=== PATIENT | female | born 1955 | race Caucasian/White ===

== ENCOUNTER → 2016-09-04 | Outpatient (CLI) | payer MEDICARE, MEDICAID ==
[2016-09-04 11:54] LABS: Basophils # (auto) 0.1 uL; Basophils % (auto) 0.9 % (0.0-2.0); DEFINITIVE VIEW TRANSMISSION; Eosinophils # (auto) 0.1 uL; Eosinophils % (auto) 1.5 % (0.0-7.0); Hemoglobin 11.2 g/dL (12.2-16.2); Lymphocytes # (auto) 2.8 uL; Lymphocytes % (auto) 46.2 % (10.0-50.0); Mean Corpuscular Hemoglobin 25.8 pg (28.0-32.0); Mean Corpuscular Hgb Conc. 31.9 g/dL (32.0-36.0); Mean Corpuscular Volume 80.8 fL (80.0-100.0); Mean Platelet Volume 8.5 fL (7.4-10.4); Monocytes # (auto) 0.4 uL; Neutrophils # (auto) 2.7 uL; Neutrophils % (auto) 44.4 % (37.0-80.0); Platelet Count (auto) 413 10^3/uL (140-450); Red Cell Distribution Width 17.6 % (11.6-16.0); White Blood Cell 6.1 10^3/uL (4.4-10.8)
[2016-09-04 12:16] LABS: Albumin 3.8 g/dL (3.4-5.0); BUN/Creatinine Ratio 16.8; Bilirubin, Total 0.5 mg/dL (0.2-1.0); Calcium 8.7 mg/dL (8.5-10.1); Potassium 4.3 mmol/L (3.5-5.1); Total Protein 8.3 g/dL (6.4-8.2)
== END | disposition home or self-care (01) ==
LOC: LAB 10:36
DX: D64.9 Anemia, unspecified (principal); M06.9 Rheumatoid arthritis, unspecified; I10 Essential (primary) hypertension; M25.50 Pain in unspecified joint; Z79.899 Other long term (current) drug therapy
CPT/HCPCS: 36415; 80053; 85025; 85652; 86141

== ENCOUNTER → 2016-10-30 | Outpatient (CLI) | payer MEDICARE, MEDICAID ==
[2016-10-30 11:52] LABS: Basophils # (auto) 0 uL; Basophils % (auto) 0.7 % (0.0-2.0); DEFINITIVE VIEW TRANSMISSION; Eosinophils # (auto) 0.1 uL; Eosinophils % (auto) 2.3 % (0.0-7.0); Hematocrit 35.8 % (36.0-46.0); Hemoglobin 11.3 g/dL (12.2-16.2); Lymphocytes # (auto) 2.2 uL; Lymphocytes % (auto) 42.1 % (10.0-50.0); Mean Corpuscular Hemoglobin 25.8 pg (28.0-32.0); Mean Corpuscular Hgb Conc. 31.6 g/dL (32.0-36.0); Mean Corpuscular Volume 81.7 fL (80.0-100.0); Mean Platelet Volume 8.8 fL (7.4-10.4); Monocytes # (auto) 0.3 uL; Monocytes % (auto) 5.2 % (0.0-12.0); Neutrophils # (auto) 2.6 uL; Neutrophils % (auto) 49.7 % (37.0-80.0); Platelet Count (auto) 425 10^3/uL (140-450); White Blood Cell 5.3 10^3/uL (4.4-10.8)
[2016-10-30 12:23] LABS: Albumin 3.7 g/dL (3.4-5.0); BUN/Creatinine Ratio 18.5; Bilirubin, Total 0.4 mg/dL (0.2-1.0); Calcium 9.2 mg/dL (8.5-10.1); Total Protein 8.1 g/dL (6.4-8.2)
== END | disposition home or self-care (01) ==
LOC: LAB 10:52
DX: M06.9 Rheumatoid arthritis, unspecified (principal); M25.50 Pain in unspecified joint; I10 Essential (primary) hypertension; Z79.899 Other long term (current) drug therapy
CPT/HCPCS: 36415; 80053; 85025; 85652; 86141

== ENCOUNTER → 2016-12-31 | Outpatient (CLI) | payer MEDICARE, MEDICAID ==
[2016-12-31 11:34] LABS: Basophils # (auto) 0 uL; Basophils % (auto) 0.7 % (0.0-2.0); CONDITION Y; DEFINITIVE SEE PRINTOUT; Eosinophils # (auto) 0.1 uL; Eosinophils % (auto) 1.9 % (0.0-7.0); Hematocrit 34.1 % (36.0-46.0); Hemoglobin 10.9 g/dL (12.2-16.2); Lymphocytes # (auto) 2.5 uL; Lymphocytes % (auto) 50.1 % (10.0-50.0); Mean Corpuscular Hemoglobin 25.9 pg (28.0-32.0); Mean Corpuscular Hgb Conc. 31.9 g/dL (32.0-36.0); Mean Corpuscular Volume 81.2 fL (80.0-100.0); Mean Platelet Volume 8.9 fL (7.4-10.4); Monocytes # (auto) 0.3 uL; Monocytes % (auto) 6.8 % (0.0-12.0); Neutrophils % (auto) 40.5 % (37.0-80.0); Platelet Count (auto) 384 10^3/uL (140-450); Red Cell Distribution Width 16.3 % (11.6-16.0)
[2016-12-31 12:12] LABS: Albumin 3.6 g/dL (3.4-5.0); BUN/Creatinine Ratio 19.8; Bilirubin, Total 0.4 mg/dL (0.2-1.0); Calcium 8.3 mg/dL (8.5-10.1); Potassium 4.3 mmol/L (3.5-5.1); Total Protein 7.7 g/dL (6.4-8.2)
== END | disposition home or self-care (01) ==
LOC: LAB 10:51
DX: I10 Essential (primary) hypertension (principal); M06.9 Rheumatoid arthritis, unspecified; D64.9 Anemia, unspecified; M25.50 Pain in unspecified joint; Z79.899 Other long term (current) drug therapy
CPT/HCPCS: 36415; 80053; 85025; 85652; 86141

== ENCOUNTER → 2017-01-22 | Outpatient (CLI) | payer MEDICARE, MEDICAID ==
[2017-01-22 13:55] LABS: Basophils # (auto) 0.1 uL; Basophils % (auto) 0.9 % (0.0-2.0); CONDITION Y; DEFINITIVE SEE PRINTOUT; Eosinophils # (auto) 0.1 uL; Eosinophils % (auto) 1.3 % (0.0-7.0); Hematocrit 33.2 % (36.0-46.0); Hemoglobin 10.5 g/dL (12.2-16.2); Lymphocytes # (auto) 2.9 uL; Lymphocytes % (auto) 53.9 % (10.0-50.0); Mean Corpuscular Hemoglobin 25.8 pg (28.0-32.0); Mean Corpuscular Hgb Conc. 31.7 g/dL (32.0-36.0); Mean Corpuscular Volume 81.5 fL (80.0-100.0); Mean Platelet Volume 8.9 fL (7.4-10.4); Monocytes # (auto) 0.4 uL; Monocytes % (auto) 7.8 % (0.0-12.0); Neutrophils % (auto) 36.1 % (37.0-80.0); Platelet Count (auto) 406 10^3/uL (140-450); Red Cell Distribution Width 16.3 % (11.6-16.0); White Blood Cell 5.5 10^3/uL (4.4-10.8)
[2017-01-22 14:04] LABS: Urine Bilirubin Negative (Negative); Urine Blood Negative /uL (Negative); Urine Color Yellow (Yellow); Urine Glucose Normal (Normal); Urine Ketone Negative (Negative); Urine Nitrite Negative (Negative); Urine RBC <1 /hpf (0 - 4); Urine Squamous Epithelial Cell FEW /hpf (<5); Urine Urobilinogen Normal (Negative); Urine pH 5.5 (5.0-8.0)
[2017-01-22 14:10] LABS: INR 0.94 (0.9-1.15); Prothrombin Time 10.2 sec (9.37-12.3)
[2017-01-22 14:29] LABS: Albumin 3.7 g/dL (3.4-5.0); BUN/Creatinine Ratio 18.4; Bilirubin, Total 0.4 mg/dL (0.2-1.0); Calcium 8.8 mg/dL (8.5-10.1); Potassium 4.1 mmol/L (3.5-5.1); Total Protein 7.8 g/dL (6.4-8.2)
== END | disposition home or self-care (01) ==
LOC: LAB 13:19
PROVIDERS: ATTEND Internal Medicine Cardiovascular Disease
DX: R07.9 Chest pain, unspecified (principal); Z01.810 Encounter for preprocedural cardiovascular examination; I49.8 Other specified cardiac arrhythmias
CPT/HCPCS: 36415; 80053; 81001; 85025; 85610; 85730; 87086

== ENCOUNTER → 2017-03-18 | Outpatient (CLI) | payer MEDICARE, MEDICAID ==
[2017-03-18 13:48] LABS: Basophils # (auto) 0 uL; Basophils % (auto) 0.9 % (0.0-2.0); CONDITION Y; DEFINITIVE SEE PRINTOUT; Eosinophils # (auto) 0.1 uL; Hemoglobin 10.9 g/dL (12.2-16.2); Lymphocytes # (auto) 2.6 uL; Mean Corpuscular Hemoglobin 25.8 pg (28.0-32.0); Mean Corpuscular Hgb Conc. 31.9 g/dL (32.0-36.0); Mean Platelet Volume 8.9 fL (7.4-10.4); Monocytes # (auto) 0.4 uL; Monocytes % (auto) 7.1 % (0.0-12.0); Platelet Count (auto) 399 10^3/uL (140-450); Red Cell Distribution Width 16.5 % (11.6-16.0); White Blood Cell 5.1 10^3/uL (4.4-10.8)
[2017-03-18 14:15] LABS: Albumin 3.7 g/dL (3.4-5.0); BUN/Creatinine Ratio 13.5; Bilirubin, Total 0.5 mg/dL (0.2-1.0); Calcium 8.8 mg/dL (8.5-10.1); Potassium 4.2 mmol/L (3.5-5.1); Total Protein 7.9 g/dL (6.4-8.2)
== END | disposition home or self-care (01) ==
LOC: LAB 13:19
DX: I10 Essential (primary) hypertension (principal); M06.9 Rheumatoid arthritis, unspecified; M25.50 Pain in unspecified joint; D64.9 Anemia, unspecified; Z79.899 Other long term (current) drug therapy
CPT/HCPCS: 36415; 80053; 85025; 85652; 86141

== ENCOUNTER → 2017-04-08 | Outpatient (CLI) | payer MEDICARE, MEDICAID ==
[2017-04-08 11:15] LABS: Basophils # (auto) 0.1 uL; Eosinophils # (auto) 0.1 uL; Eosinophils % (auto) 1.6 % (0.0-7.0); Hematocrit 34.6 % (36.0-46.0); Lymphocytes # (auto) 2.5 uL; Lymphocytes % (auto) 49.8 % (10.0-50.0); Mean Corpuscular Hemoglobin 25.5 pg (28.0-32.0); Mean Corpuscular Hgb Conc. 31.6 g/dL (32.0-36.0); Mean Corpuscular Volume 80.7 fL (80.0-100.0); Mean Platelet Volume 8.7 fL (6.9-10.8); Monocytes # (auto) 0.3 uL; Monocytes % (auto) 5.9 % (0.0-12.0); Neutrophils # (auto) 2.1 uL; Neutrophils % (auto) 41.7 % (37.0-80.0); Nucleated Red Blood Cells % 0.1 %; Platelet Count (auto) 344 10^3/uL (140-450); Red Cell Distribution Width 16.3 % (11.8-14.3); White Blood Cell 5.1 10^3/uL (4.4-10.8)
[2017-04-08 11:21] LABS: Albumin 3.6 g/dL (3.4-5.0); BUN/Creatinine Ratio 15.8; Bilirubin, Total 0.5 mg/dL (0.2-1.0); Calcium 8.1 mg/dL (8.5-10.1)
[2017-04-09 12:08] LABS: Thyroid Peroxidase (TPO) Ab >600 IU/mL (0-34)
== END | disposition home or self-care (01) ==
LOC: LAB 09:57
DX: E09.9 Drug or chemical induced diabetes mellitus without complications (principal)
CPT/HCPCS: 36415; 80053; 83036; 84436; 84439; 84443; 84480; 85025; 86376; 86800

== ENCOUNTER → 2017-05-08 | Outpatient (CLI) | payer MEDICARE, MEDICAID | END | disposition home or self-care (01) | LOC: LAB 10:15 | DX: E03.9 Hypothyroidism, unspecified (principal) | CPT/HCPCS: 36415; 84439; 84443; 84480 ==

== ENCOUNTER → 2017-06-03 | Outpatient (CLI) | payer MEDICARE, MEDICAID ==
[2017-06-03 13:26] LABS: Basophils # (auto) 0 uL; Basophils % (auto) 0.8 % (0.0-2.0); Eosinophils # (auto) 0.1 uL; Hemoglobin 10.4 g/dL (12.2-16.2); Monocytes # (auto) 0.4 uL; Neutrophils # (auto) 2.3 uL; White Blood Cell 5.5 10^3/uL (4.4-10.8)
[2017-06-03 13:28] LABS: Eosinophils % (auto) 1.9 % (0.0-7.0); Hematocrit 32.9 % (36.0-46.0); Lymphocytes # (auto) 2.7 uL; Lymphocytes % (auto) 48.6 % (10.0-50.0); Mean Corpuscular Hemoglobin 25.6 pg (28.0-32.0); Mean Corpuscular Hgb Conc. 31.7 g/dL (32.0-36.0); Mean Corpuscular Volume 80.7 fL (80.0-100.0); Mean Platelet Volume 8.1 fL (6.9-10.8); Monocytes % (auto) 7.3 % (0.0-12.0); Neutrophils % (auto) 41.4 % (37.0-80.0); Nucleated Red Blood Cells % 0.2 %; Platelet Count (auto) 351 10^3/uL (140-450); Red Cell Distribution Width 16.2 % (11.8-14.3)
[2017-06-03 15:40] LABS: Albumin 3.7 g/dL (3.4-5.0); BUN/Creatinine Ratio 18.3; Bilirubin, Total 0.5 mg/dL (0.2-1.0); Calcium 8.6 mg/dL (8.5-10.1); Potassium 4.2 mmol/L (3.5-5.1)
== END | disposition home or self-care (01) ==
LOC: LAB 12:54
DX: I10 Essential (primary) hypertension (principal); M06.9 Rheumatoid arthritis, unspecified; I70.0 Atherosclerosis of aorta; E78.00 Pure hypercholesterolemia, unspecified; D64.9 Anemia, unspecified; Z79.899 Other long term (current) drug therapy
CPT/HCPCS: 36415; 80053; 85025; 85652; 86141

== ENCOUNTER → 2017-06-09 | Outpatient (CLI) | payer MEDICARE, MEDICAID ==
[2017-06-09 13:49] LABS: Eosinophils # (auto) 0.1 uL; Eosinophils % (auto) 1.9 % (0.0-7.0); Hemoglobin 11.2 g/dL (12.2-16.2); Lymphocytes # (auto) 2.7 uL; Mean Platelet Volume 8.5 fL (6.9-10.8); Monocytes # (auto) 0.3 uL; Nucleated Red Blood Cells % 0.1 %
[2017-06-09 13:52] LABS: Basophils # (auto) 0.1 uL; Basophils % (auto) 1.1 % (0.0-2.0); Hematocrit 35.9 % (36.0-46.0); Lymphocytes % (auto) 50.4 % (10.0-50.0); Mean Corpuscular Hemoglobin 25.7 pg (28.0-32.0); Mean Corpuscular Hgb Conc. 31.3 g/dL (32.0-36.0); Mean Corpuscular Volume 82.1 fL (80.0-100.0); Monocytes % (auto) 5.1 % (0.0-12.0); Neutrophils # (auto) 2.2 uL; Neutrophils % (auto) 41.5 % (37.0-80.0); Platelet Count (auto) 364 10^3/uL (140-450); Red Cell Distribution Width 15.9 % (11.8-14.3); White Blood Cell 5.3 10^3/uL (4.4-10.8)
[2017-06-09 13:56] LABS: INR 0.97 (0.9-1.15); Partial Thromboplastin Time 25.7 sec (22.64-33.71); Prothrombin Time 10.6 sec (9.37-12.3)
[2017-06-09 13:57] LABS: BUN/Creatinine Ratio 16.7; Calcium 8.7 mg/dL (8.5-10.1)
[2017-06-09 14:03] LABS: Reticulocyte Count 1.99 % (0.5-1.5)
[2017-06-09 14:06] LABS: Vitamin B12 530 pg/mL (211-911)
[2017-06-09 14:08] LABS: Temperature: 22.1 C (20.0-25.0)
== END | disposition home or self-care (01) ==
LOC: LAB 13:08
DX: E03.9 Hypothyroidism, unspecified (principal); D64.9 Anemia, unspecified; Z79.01 Long term (current) use of anticoagulants
CPT/HCPCS: 36415; 80048; 82270; 82607; 82728; 82746; 83540; 83550; 84439; 84480; 85025; 85045; 85610; 85730

== ENCOUNTER → 2017-10-08 | Outpatient (CLI) | payer MEDICARE, MEDICAID ==
[2017-10-08 10:33] LABS: Basophils # (auto) 0.1 uL; Eosinophils # (auto) 0.1 uL; Eosinophils % (auto) 0.9 % (0.0-7.0)
[2017-10-08 10:36] LABS: Basophils % (auto) 0.9 % (0.0-2.0); Hematocrit 34.4 % (36.0-46.0); Hemoglobin 10.6 g/dL (12.2-16.2); Lymphocytes # (auto) 3.3 uL; Lymphocytes % (auto) 37.7 % (10.0-50.0); Mean Corpuscular Hgb Conc. 30.7 g/dL (32.0-36.0); Monocytes # (auto) 0.5 uL; Monocytes % (auto) 5.8 % (0.0-12.0); Neutrophils # (auto) 4.8 uL; Neutrophils % (auto) 54.7 % (37.0-80.0); Platelet Count (auto) 399 10^3/uL (140-450); Red Blood Cells 4.41 10^6/uL (4.0-5.20); Red Cell Distribution Width 16.6 % (11.8-14.3); White Blood Cell 8.7 10^3/uL (4.4-10.8)
[2017-10-08 11:13] LABS: Albumin 3.7 g/dL (3.4-5.0); BUN/Creatinine Ratio 26.7; Bilirubin, Total 0.3 mg/dL (0.2-1.0); Calcium 8.3 mg/dL (8.5-10.1); Potassium 4.1 mmol/L (3.5-5.1); Total Protein 8.2 g/dL (6.4-8.2)
== END | disposition home or self-care (01) ==
LOC: LAB 10:18
DX: I10 Essential (primary) hypertension (principal); K21.9 Gastro-esophageal reflux disease without esophagitis; G89.4 Chronic pain syndrome; J45.909 Unspecified asthma, uncomplicated; M05.40 Rheumatoid myopathy with rheumatoid arthritis of unspecified site; Z68.42 Body mass index [BMI] 45.0-49.9, adult
CPT/HCPCS: 36415; 80053; 80061; 84443; 85025

== ENCOUNTER → 2018-05-06 | Outpatient (CLI) | payer MEDICARE, MEDICAID ==
[2018-05-06 14:16] LABS: Basophils # (auto) 0.1 uL; Basophils % (auto) 0.9 % (0.0-2.0); Eosinophils # (auto) 0.1 uL; Eosinophils % (auto) 1.8 % (0.0-7.0); Hematocrit 41.8 % (36.0-46.0); Hemoglobin 13.8 g/dL (12.2-16.2); Lymphocytes # (auto) 2.7 uL; Lymphocytes % (auto) 39.1 % (10.0-50.0); Mean Corpuscular Hemoglobin 29.1 pg (28.0-32.0); Mean Corpuscular Hgb Conc. 32.9 g/dL (32.0-36.0); Mean Corpuscular Volume 88.4 fL (80.0-100.0); Monocytes # (auto) 0.4 uL; Monocytes % (auto) 6.3 % (0.0-12.0); Neutrophils # (auto) 3.6 uL; Neutrophils % (auto) 51.9 % (37.0-80.0); Platelet Count (auto) 324 10^3/uL (140-450); Red Blood Cells 4.73 10^6/uL (4.0-5.20); Red Cell Distribution Width 15.9 % (11.8-14.3); White Blood Cell 6.8 10^3/uL (4.4-10.8)
[2018-05-06 14:27] LABS: Urine Bacteria FEW /hpf (None Seen); Urine Blood Negative /uL (Negative); Urine Specific Gravity 1.022 (1.001-1.035); Urine WBC 5 /hpf (0 - 5)
[2018-05-06 14:31] LABS: BUN/Creatinine Ratio 14.4; Calcium 8.6 mg/dL (8.5-10.1); Magnesium 2.2 mg/dL (1.6-2.6); Potassium 4.2 mmol/L (3.5-5.1)
[2018-05-06 14:34] LABS: Bilirubin, Total 0.3 mg/dL (0.2-1.0); Phosphorus 3.2 mg/dL (2.5-4.90); Total Protein 9.2 g/dL (6.4-8.2)
[2018-05-06 14:42] LABS: Ferritin 7.7 ng/mL (10-322); Free T4 (Free Thyroxine) 1.09 ng/dL (0.89-1.76)
[2018-05-06 14:43] LABS: T3 Total 0.91 ng/mL (0.60-1.81)
[2018-05-06 14:44] LABS: Hepatitis B Surface Antibody Negative
[2018-05-06 15:18] LABS: CRP High Sensitivity 0.657 mg/dL (< 0.3)
[2018-05-06 15:20] LABS: Hepatitis A Total Antibody Positive
[2018-05-06 15:33] LABS: Hepatitis B Core Total AB Negative; Hepatitis B Surface Antigen Negative (Negative); Hepatitis C Antibody Negative (Negative)
== END | disposition home or self-care (01) ==
LOC: LAB 12:25
PROVIDERS: ATTEND Internal Medicine
DX: M06.9 Rheumatoid arthritis, unspecified (principal); R79.9 Abnormal finding of blood chemistry, unspecified; I10 Essential (primary) hypertension; Z68.43 Body mass index [BMI] 50.0-59.9, adult
CPT/HCPCS: 36415; 80053; 80069; 81001; 82306; 82607; 82728; 83036; 83540; 83550; 83735; 84436; 84439; 84443; 84480; 85025; 85652; 86141; 86200; 86235; 86376; 86704; 86706; 86708; 86800; 86803; 87340

== ENCOUNTER 2024-08-29 06:13 | Inpatient (IN) | payer MEDICARE, MEDICAID ==
[2024-08-29] VITALS (11 sets, daily range): BP systolic 117–137; BP diastolic 58–71; PULSE 46–77; RESP 8–20; TEMP 97.9–98.1; O2SAT 89–99
[~2024-08-29] VITALS: Ht 170.2 cm; Wt 112.6 kg
[~2024-08-29 06:13] MED LIST: ACET-1882 PO; ALBUAER3 IN; APIX5TAB PO; CALC0.5C PO; CYCL-839 PO; DIGO0.12 PO; FAMO20TA10 PO; FENO134C16 PO; FOLI-119 PO; HYDR12.59 PO; LEUC5TAB PO; LEVO150T10 PO; LORA-622 PO; METO-159 PO; MONT-8 PO; NIFE1TAB30 PO; RABE1TAB5 PO; SUCR1TAB PO; VALA1TAB34 PO
[2024-08-29] MEDS: ACETAMINOPHEN IV 1000 MG/100ML (10MG/ML) IV ONE (06:45)
[2024-08-29] MEDS: PREGABALIN CAPSULE 75 MG CAP PO ONE (06:45)
[2024-08-29] MEDS: CELECOXIB 100 MG CAP PO ONE (06:45)
[2024-08-29] MEDS ORDERED: PROPOFOL 10 MG/ML 20 ML IV ONE ×2 (06:52→08:28)
[2024-08-29] MEDS ORDERED: GLYCOPYRROLATE 0.2 MG/ML 1ML VIAL ONE (06:52)
[2024-08-29] MEDS ORDERED: DexAMETHasone SOD PHOS 10MG/1ML VIAL INJ ONE (06:53)
[2024-08-29] MEDS ORDERED: LIDOCAINE 1% INJ PF 5ML AMP ONE (06:53)
[2024-08-29] MEDS ORDERED: KETOROLAC TROMETH 30 MG/ML 1ML VIAL ONE ×2 (06:53→08:04)
[2024-08-29] MEDS ORDERED: ONDANSETRON HCL 4 MG/2 ML VIAL ONE (06:53)
[2024-08-29] MEDS ORDERED: ALBUTEROL SULF HFA 90MCG INH 200DOSE IN SCH (07:00)
[2024-08-29] MEDS ORDERED: ACETAMINOPHEN 325 MG TAB PO PRN (07:15)
[2024-08-29] MEDS ORDERED: MORPHINE SULFATE INJ 2 MG/ml SYRG IV PRN (07:15)
[2024-08-29] MEDS ORDERED: NITROGLYCERIN 0.4 MG SL TAB SL PRN (07:15)
[2024-08-29] MEDS ORDERED: ALBUTEROL SULF 2.5 MG/0.5ML(0.5%) NEB SOLN NEB PRN (07:15)
[2024-08-29] MEDS ORDERED: HYDROmorphone HCL 2 MG/ML VL/or syr IV PRN ×2 (07:15→13:00)
[2024-08-29] MEDS ORDERED: SODIUM CHLORIDE LOCK 10 ML ONE (07:33)
[2024-08-29] MEDS ORDERED: MORPHINE SULF PF 5 MG/10 ML VIAL ONE (08:04)
[2024-08-29] MEDS ORDERED: EPINEPHrine HCL 1 MG/1 ML AMP ONE (08:16)
[2024-08-29] MEDS ORDERED: FLUMAZENIL 0.1 MG/ML INJ 10ML MDV IV PRN (09:15)
[2024-08-29] MEDS ORDERED: fentaNYL CITRATE 100 MCG/2 ML VL IV PRN (09:15)
[2024-08-29] MEDS ORDERED: hydrALAZINE HCL 20 MG/ML VL IV PRN ×2 (09:15→13:15)
[2024-08-29] MEDS ORDERED: NALOXONE HCL 0.4 MG/ML VIAL IV PRN (09:15)
[2024-08-29] MEDS ORDERED: ePHEDrine SULFATE 50 MG/ML AMP IV PRN (09:15)
--- NOTE | 2024-08-29 09:33 | DVH ---
EXAM: XY R KNEE 3V XRAY CLINICAL INDICATION: S/P SURGERY TECHNIQUE: XY R KNEE 3V XRAY Comparison: None FINDINGS/IMPRESSION: There is no evidence of acute fracture or dislocation. Right total knee arthroplasty. The alignment is anatomical. There is no radiopaque foreign body.
[2024-08-29] MEDS: ONDANSETRON HCL 4 MG/2 ML VIAL IV PRN ×2 (09:40→14:39)
[2024-08-29] MEDS: VANCOMYCIN HCL 1000 MG VL ONE ×2 (09:41→09:42)
[2024-08-29] MEDS: oxyCODONE HCL 5MG TAB PO PRN (09:41)
[2024-08-29] MEDS: BUPIVACAINE 0.25% INJ 50ML VIAL ONE ×2 (09:42→09:43)
[2024-08-29] MEDS: CEFEPIME 1GM/ 50ML 50 ML IV ONE (09:42)
[2024-08-29] MEDS: TRANEXAMIC ACID 20 ML ONE (09:42)
[2024-08-29] MEDS: DexAMETHasone SOD PHOS 4 MG/1ML SDV INJ ONE (09:43)
[2024-08-29] MEDS: BUPIVACAINE HCL 50 ML ONE (09:43)
[2024-08-29] MEDS: LEVOTHYROXINE SODIUM 100 MCG TAB PO SCH (09:43)
[2024-08-29] MEDS: BUPIVACAINE W/ EPINEPH 0.5% MPF 30ML VIAL IJ ONE (09:44)
[2024-08-29] MEDS: LEVOTHYROXINE SODIUM 50 MCG TAB PO SCH (09:44)
[2024-08-29] MEDS: HYDROmorphone HCL 2 MG/ML VL/or syr IV PRN (09:50)
[2024-08-29] MEDS: LACTATED RINGER'S 1,000 ML IV SCH (09:57)
[2024-08-29] MEDS: hydroCHLOROthiazide 25 MG TAB PO SCH (09:58)
[2024-08-29] MEDS: METOPROLOL TARTRATE 50 MG TAB PO SCH (09:59)
[2024-08-29] MEDS: DIGOXIN 0.125 MG TAB PO SCH (09:59)
[2024-08-29] MEDS: PANTOPRAZOLE 40 MG TAB PO SCH (10:00)
[2024-08-29] MEDS: NIFEdipine ER 30 MG TAB PO SCH (10:00)
[2024-08-29] MEDS: oxyCODONE ER 10 MG TAB PO SCH (10:00)
[2024-08-29] MEDS: MONTELUKAST SODIUM 10 MG TAB PO SCH (10:00)
[2024-08-29] MEDS ORDERED: ENOXAPARIN SOD 40 MG/0.4 ML SYRINGE SC SCH (10:00)
[2024-08-29] MEDS ORDERED: CEFEPIME 1GM/ 50ML 50 ML IV SCH (10:00)
[2024-08-29] MEDS ORDERED: FAMOTIDINE 20 MG TAB PO SCH (10:00)
[2024-08-29] MEDS: FENOFIBRATE 134 MG PO SCH (11:33)
[2024-08-29] MEDS: CALCITRIOL 0.5 MCG PO SCH (11:33)
[2024-08-29] MEDS: ceFAZolin 1GM/50ML 50 ML IV SCH ×2 (11:33→17:33)
[2024-08-29] MEDS: FOLIC ACID 1 MG TAB PO SCH (11:34)
--- NOTE | 2024-08-29 12:56 | DVHHP2 ---
Review of Systems Allergies: Coded Allergies: Codeine (Verified Allergy, Mild, N/V, 08/23/24) Penicillin G (Verified Allergy, Mild, N/V, 08/23/24) Uncoded Allergies: sulfa (Allergy, Severe, Facial swelling , 08/23/24) Medications Current Medications Medications Dose Ordered Sig/Rui Route Start Time Stop Time Status Last Admin Dose Admin Cyclobenzaprine HCl 10 mg DAILY PO 08/29/24 10:00 Digoxin 0.125 mg DAILY PO 08/29/24 10:00 Famotidine 20 mg DAILY PO 08/29/24 10:00 Montelukast Sodium 10 mg DAILY PO 08/29/24 10:00 Sucralfate 1 gm QID PO 08/29/24 12:00 Patient Own Medication 0.5 mcg DAILY PO 08/29/24 10:00 Patient Own Medication 134 mg DAILY PO 08/29/24 10:00 Folic Acid 1 mg DAILY PO 08/29/24 10:00 Hydrochlorothiazide 12.5 mg DAILY PO 08/29/24 10:00 Levothyroxine Sodium 100 mcg QAM PO 08/29/24 07:00 Metoprolol Tartrate 100 mg DAILY PO 08/29/24 10:00 Nifedipine 60 mg DAILY PO 08/29/24 10:00 Pantoprazole Sodium 40 mg DAILY PO 08/29/24 10:00 Albuterol 2.5 mg Q6HPRN PRN NEB 08/29/24 07:15 Lactated Ringer's 1,000 ml @ 100 mls/hr Q10H IV 08/29/24 07:15 08/29/24 09:57 100 MLS/HR Sodium Chloride 10 ml Q8HR IV 08/29/24 14:00 Cefazolin Sodium 50 ml @ 50 mls/hr Q6H IV 08/29/24 07:15 08/29/24 20:14 08/29/24 11:33 50 MLS/HR Acetaminophen 650 mg Q6HP PRN PO 08/29/24 07:15 Oxycodone/ Acetaminophen 1 tab Q4HP PRN PO 08/29/24 07:15 Hydromorphone HCl 1 mg Q2HP PRN IV 08/29/24 07:15 Oxycodone HCl 10 mg Q12HR PO 08/29/24 10:00 Ondansetron HCl 4 mg Q6HP PRN IV 08/29/24 07:15 Docusate Sodium 100 mg Q12HR PO 08/29/24 10:00 Nitroglycerin 0.4 mg Q5MINP PRN SL 08/29/24 07:15 Morphine Sulfate 2 mg Q30M PRN IV 08/29/24 07:15 Levothyroxine Sodium 50 mcg QAM PO 08/29/24 07:00 Oxycodone HCl 10 mg ONCE PRN PO 08/29/24 09:15 08/29/24 09:41 10 MG Cefepime HCl 50 ml @ 12.5 mls/hr DAILY IV 08/30/24 10:00 Enoxaparin Sodium 40 mg DAILY SC 08/30/24 10:00 Exam Vital Signs Vital Signs Date Time Temp Pulse Resp B/P (MAP) Pulse Ox O2 Delivery O2 Flow Rate FiO2 08/29/24 11:39 67 14 118/54 (75) 94 08/29/24 11:06 3.0 32 08/29/24 10:53 Nasal Cannula 08/29/24 08:54 98.1 98.1 Assessment/Plan Assessment/Plan SEE DICTATED NOTE Plan discussed with: Patient Date of Service: Aug 29, 2024 Billing Provider: RACHEL BRAMBILA MD Common Visit Codes: [id number] INP/OBS CARE (HIGH) RACHEL BRAMBILA MD Aug 29, 2024 12:56
--- NOTE | 2024-08-29 13:10 | DVHHP ---
ADMIT DATE: 08/29/2024 HISTORY OF PRESENT ILLNESS: The patient is a 69-year-old lady who was admitted after she underwent surgery on the right knee for DJD of the knee. The patient at this time denies any significant pain. No chest pain or shortness of breath. No nausea or vomiting. REVIEW OF SYSTEMS: Review of rest of systems are otherwise currently negative. PAST MEDICAL HISTORY: Significant for hypertension, hypothyroidism with previous thyroid surgery, atrial fibrillation. MEDICATIONS: Include Eliquis, digoxin, hydrochlorothiazide, levothyroxine, metoprolol, Singulair, nifedipine. ALLERGIES: PENICILLIN, SULFA and CODEINE. SOCIAL HISTORY: No history of smoking or alcohol. FAMILY HISTORY: Negative. PHYSICAL EXAMINATION: GENERAL: The patient is asleep, arousable. VITAL SIGNS: Temperature of 98.1, pulse of 67 per minute, blood pressure of 118/54. SHEENT: Unremarkable. NECK: There is no JVD, no pedal edema. LUNGS: Equal bilaterally. No added sounds. CARDIOVASCULAR SYSTEM: S1, S2 is regular. There is bradycardia. ABDOMEN: Soft. There is no organomegaly. NEUROLOGIC: Nonfocal. MUSCULOSKELETAL: The right knee is currently in a dressing. ASSESSMENT AND PLAN: * Hypertension, for which the patient's blood pressure will be monitored. * Atrial fibrillation with secondary hypercoagulable state. The patient's Eliquis is on hold. * Hypothyroidism, status post thyroid surgery. The patient's TSH will be checked. * Obesity. * Questionable history of rheumatoid arthritis. * Status post right knee surgery for degenerative joint disease of the knee. She will be placed on pain medications and receive physical therapy. MD CIPRIANO Mcknight/BHARGAV TID: [id number] RECEIPT: [id number]
[2024-08-29] MEDS: CYCLOBENZAPRINE HCL 10 MG TAB PO SCH (13:15)
[2024-08-29] MEDS: SUCRALFATE 1 GM TAB PO SCH (13:15)
[2024-08-29] MEDS: DOCUSATE SOD 100 MG CAP PO SCH (13:15)
[2024-08-29] MEDS: METOCLOPRAMIDE HCL 5MG/ml INJ 2ml VIAL IV ONE (13:29)
[2024-08-29] MEDS: SODIUM CHLOR 0.9% PF (SALINE LOCK) 10ML VIAL/SYR IV SCH (13:30)
[2024-08-29] MEDS ORDERED: KETAMINE 50mg/ML 1ml syringe IV ONE (13:49)
[2024-08-30] VITALS (9 sets, daily range): BP systolic 107–149; BP diastolic 57–85; PULSE 41–61; RESP 18–20; TEMP 97.5–98.2; O2SAT 97–99
--- NOTE | 2024-08-30 06:22 | DVHOP2 ---
Operative Report - 2 Report Details Date: 08/29/24 Preop Diagnosis: Right knee osteoarthritis Postop Diagnosis: as above Surgeon: Roberto Burns MD Slackline Operator: Rodrigo BULLARD Anesthesiologist: Ross JULIO Anesthesia: Mac, Regional Consent: The patient was informed of the risks and benefits of the procedure. These i nclude but are not limited to complications of anesthesia, postoperative infection, incomplete relief of symptoms, recurrence of symptoms, damage to blood vessels, nerves and tendons, deep venous thrombosis, pulmonary embolism and possible need for repeat surgery in the future. Name of Procedure Performed Right total knee arthroplasty using computer navigation Procedure Details Procedure Details: FINDINGS: degenerative disease with grade IV changes with valgus deformity INDICATION: This patient has failed non-operative treatments for knee arthritis and is now indicated for a total knee replacement. Preoperatively in the waiting area as well as in the office, I had a long discussion with the patient regarding the plan, the expected outcome, the risks, benefits, and alternatives of surgery. The risks include, but are not limited to, infection (which may require future surgery and removal of implants) , bleeding (which may require a transfusion), damage to nerves, arteries, veins, tendons, muscles and other adjacent structures. Also discussed the possibilities of intraoperative fractures, implant loosening, heterotopic bone formation, and revision for variety of reasons, and medical complications etc. This was discussed at length and consent has been obtained. DESCRIPTION OF PROCEDURE: In the preoperative holding area, the consent was reviewed and the appropriate extremity was verified by the patient and marked with my initials. The patient was then transferred to the operating theatre. Appropriate anesthesia was induced. All bony prominences were well padded. A time out was performed verifying the side and site of surgery according to standard protocol. Preoperative antibiotics were given 10 minutes prior to tourniquet inflation. Tranexamic was given. A well padded thigh tourniquet was applied. The extremity was then prepped and draped in the usual sterile fashion. The extremity was exsanguinated and the tourniquet was inflated. We then made a mid-line incision, which we continued to the underlying capsular tissue. We performed a medial parapatellar arthrotomy. We periosteally exposed the proximal tibia, excised the anterior fat pad and synovium from the distal aspect of the femur. We then subluxed the patella and brought the knee up into flexion. The lateral meniscus, ACL were released. We used the appropriate guide with attached computer navigation to secure the distal femoral cutting block to the femur with pins and completed the distal femoral cut in 0 degrees to the mechanical axis with an oscillating saw. We removed the distal femoral cutting block and turned our attention to the tibia. We used the extramedullary tibial alignment guide with computer navigation to secure the proximal tibial cutting block to the tibia with pins, setting it for a 1mm cut from the more involved side, medially and completed the proximal tibial cut. We then used the spacer block and alignment bandar to check the varus- valgus angle of our cuts and the extension gap. We marked our femoral anatomy, including [place]'s line and the epicondylar axis. Using that as a rotational guide, we used the sizing guide to size our femur properly, using a stylus to ensure there would be no notching. We then used the AP cutting guide to make our anterior and posterior cuts and chamfer cuts with an oscillating saw. We again checked the flexion and extension gaps and coronal balancing. Next, we sized our tibia and secured a baseplate with appropriate rotation with pins. We placed a trial femur in position and completed preparation of the notch with reamers and box osteotome and placed a trial notch in position. We used trials to choose our liner size and then placed the liner in place and reduced the knee . We then placed a trial button in place. At this point, we checked our seven parameters: 1) Limb alignment 2) Extension 3) Flexion against gravity 4) Flexion stability 5) Varus-valgus balancing 6) Component rotation 7) Patella tracking We were satisfied with these and removed all trials with the exception of the baseplate. We completed preparation of the tibia with the appropriate reamer and keel impactor and then removed the baseplate. We placed a bone plug in the distal femur and then irrigated and dried all bony surfaces and injected our pain cocktail. We impacted the proximal tibia, distal femur impacted our tibial, femoral and patellar components into position. We impacted our liner and reduced the knee and held it with axial loading until all cement hardened. We did a teri-articular cocktail block Once all cement had hardened, we brought the knee back up into flexion and used an osteotome to remove excess cement. We released the tourniquet and achieved hemostasis where necessary. A dilute betadine solution (17.5mL in 500mL saline) was used to wash the joint and left to sit for 3 minutes. This was then irrigated out with copious amounts of pulse lavage. We sprinkled 1g vancomycin powder below the fascia and 1g above the fascia. We copiously irrigated the knee. We re-checked our seven parameters. We closed our capsular incision with a PDS style suture. We irrigated further. We closed the subcutaneous tissue with Vicryl suture and re-approximated the skin with Carolyn. We verified all lower extremity compartments were soft and compressible and that we had intact distal pulses. We wrapped the extremity in sterile Webril and mariel bandage. The patient was transferred to the recovery room in stable condition. Condition Good Disposition Still a Patient ROBERTO BURNS MD Aug 30, 2024 06:22
[2024-08-30 06:28] LABS: Basophils # (auto) 0 10 ^3/uL (0-0.2); Basophils % (auto) 0.3 % (0.0-2.0); Eosinophils # (auto) 0 10 ^3/uL (0-0.8); Eosinophils % (auto) 0.2 % (0.0-7.0); Hematocrit 33.3 % (36.0-46.0); Hemoglobin 11.2 g/dL (12.2-16.2); Lymphocytes # (auto) 1.5 10 ^3/uL (0.4-5.4); Lymphocytes % (auto) 16.4 % (10.0-50.0); Mean Corpuscular Hgb Conc. 33.7 g/dL (32.0-36.0); Monocytes % (auto) 10.8 % (0.0-12.0); Neutrophils # (auto) 6.6 10 ^3/uL (1.6-8.6); Neutrophils % (auto) 72.3 % (37.0-80.0); Platelet Count (auto) 261 10^3/uL (140-450); Red Blood Cells 3.62 10^6/uL (4.0-5.20); Red Cell Distribution Width 13.8 % (11.8-14.3); White Blood Cell 9.1 10^3/uL (4.4-10.8)
[2024-08-30 06:34] LABS: Alanine Aminotransferase 23 U/L (7-40); Albumin 3.8 g/dL (3.2-4.8); Anion Gap 6 (5-15); Aspartate Aminotransferase 16 U/L (13-40); BUN/Creatinine Ratio 18.8 (10.0-20.0); Blood Urea Nitrogen 21 mg/dL (9-23); Calcium 9.1 mg/dL (8.7-10.4); Carbon Dioxide 30 mmol/L (20-31); Chloride 104 mmol/L (98-107); Potassium 4.5 mmol/L (3.5-5.1); Sodium 140 mmol/L (136-145)
[2024-08-30 06:35] LABS: Total Protein 6.1 g/dL (5.7-8.2)
[2024-08-30 06:42] LABS: Alkaline Phosphatase 43 U/L (46-116); Bilirubin, Total 0.3 mg/dL (0.2-1.0); Glucose 148 mg/dL (74-106)
--- NOTE | 2024-08-30 07:20 | DVH ---
EXAM: XR Chest, 1 View CLINICAL INDICATION: HTN TECHNIQUE: Frontal view of the chest. COMPARISON: None FINDINGS: LUNGS AND PLEURAL SPACES: Unremarkable. No consolidation. No pneumothorax. HEART: Unremarkable. No cardiomegaly. MEDIASTINUM: Unremarkable. Normal mediastinal contour. BONES/JOINTS: Unremarkable. No acute fracture. OTHER FINDINGS: . None. . IMPRESSION: No acute cardiopulmonary process.
--- NOTE | 2024-08-30 07:53 | DVHPN2 ---
Progress Note Date Seen: Aug 30, 2024 Medical Necessity Reason Pt with a Central, PICC or Fol: No Subjective Patient reports: No new complaints Objective vital signs Vital Sign Date Time Temp Pulse Resp B/P (MAP) Pulse Ox O2 Delivery O2 Flow Rate FiO2 08/30/24 06:59 98 Nasal Cannula* 3 32 08/30/24 05:08 97.6 47 18 107/57 (74) 97.6 Total Intake and Output 08/29/24 08/29/24 08/30/24 15:00 23:00 07:00 Intake Total 50 ml 300 ml 1250 ml Output Total 0 ml 600 ml Balance 50 ml 300 ml 650 ml medications Current Medications Medications Dose Ordered Sig/Rui Route Start Time Stop Time Status Last Admin Dose Admin Cyclobenzaprine HCl 10 mg DAILY PO 08/29/24 10:00 08/29/24 13:15 10 MG Digoxin 0.125 mg DAILY PO 08/29/24 10:00 Montelukast Sodium 10 mg DAILY PO 08/29/24 10:00 Sucralfate 1 gm QID PO 08/29/24 12:00 08/30/24 05:37 1 GM Folic Acid 1 mg DAILY PO 08/29/24 10:00 08/29/24 13:15 1 MG Levothyroxine Sodium 100 mcg QAM PO 08/29/24 07:00 08/30/24 05:37 100 MCG Pantoprazole Sodium 40 mg DAILY PO 08/29/24 10:00 Albuterol 2.5 mg Q6HPRN PRN NEB 08/29/24 07:15 Lactated Ringer's 1,000 ml @ 100 mls/hr Q10H IV 08/29/24 07:15 08/30/24 03:30 100 MLS/HR Sodium Chloride 10 ml Q8HR IV 08/29/24 14:00 08/30/24 05:39 10 ML Acetaminophen 650 mg Q6HP PRN PO 08/29/24 07:15 Oxycodone/ Acetaminophen 1 tab Q4HP PRN PO 08/29/24 07:15 Oxycodone HCl 10 mg Q12HR PO 08/29/24 10:00 08/29/24 21:54 10 MG Ondansetron HCl 4 mg Q6HP PRN IV 08/29/24 07:15 08/29/24 21:50 4 MG Docusate Sodium 100 mg Q12HR PO 08/29/24 10:00 08/29/24 21:53 100 MG Nitroglycerin 0.4 mg Q5MINP PRN SL 08/29/24 07:15 Morphine Sulfate 2 mg Q30M PRN IV 08/29/24 07:15 Levothyroxine Sodium 50 mcg QAM PO 08/29/24 07:00 08/30/24 05:38 50 MCG Oxycodone HCl 10 mg ONCE PRN PO 08/29/24 09:15 08/29/24 09:41 10 MG Cefepime HCl 50 ml @ 12.5 mls/hr DAILY IV 08/30/24 10:00 Enoxaparin Sodium 40 mg DAILY SC 08/30/24 10:00 Hydromorphone HCl 1 mg Q3HP PRN IV 08/29/24 13:00 Hydralazine HCl 10 mg Q6HP PRN IV 08/29/24 13:15 Examination: GENERAL:Normal, MSK:Abnormal laboratory and microbiology Laboratory Tests 08/30/24 05:37 Test 08/30/24 05:37 Range/Units Serum Glucose 148 H 74-106 mg/dL Problem List/Assessment/Plan Problem List/Assessment/Plan 69 year old female who is s/p Right TKA POD 1 1. Pain control 2. Continue with medical management for bradycardia 3. CPM as ordered 4. Physical therapy 5. WBAT RLE with use of walker 6. d/c planning for home on 08/31/2024 with home health and in home physical therapy Plan discussed with: Patient Date of Service: Aug 30, 2024 Billing Provider: JOELLE SHAH MD Common Visit Codes: NOT BILLABLE MALAIKA GONZALEZ NP Aug 30, 2024 07:53
[2024-08-30] MEDS: CEFEPIME 1GM/ 50ML 50 ML IV SCH (09:14)
[2024-08-30] MEDS: ENOXAPARIN SOD 40 MG/0.4 ML SYRINGE SC SCH (09:16)
--- NOTE | 2024-08-30 10:01 | DVHPN2 ---
Progress Note Date Seen: Aug 30, 2024 Medical Necessity Reason Pt with a Central, PICC or Fol: No Subjective Patient reports: No new complaints Review of Systems: HEENT:Normal, CVS:Normal, RESPIRATORY:Normal, GI:Normal, :Normal, MSK:Normal, NEURO:Normal Objective vital signs Vital Sign Date Time Temp Pulse Resp B/P (MAP) Pulse Ox O2 Delivery O2 Flow Rate FiO2 08/30/24 09:16 80 08/30/24 06:59 98 Nasal Cannula* 3 32 08/30/24 05:08 97.6 18 107/57 (74) 97.6 Total Intake and Output 08/29/24 08/29/24 08/30/24 15:00 23:00 07:00 Intake Total 50 ml 300 ml 1250 ml Output Total 0 ml 600 ml Balance 50 ml 300 ml 650 ml medications Current Medications Medications Dose Ordered Sig/Rui Route Start Time Stop Time Status Last Admin Dose Admin Cyclobenzaprine HCl 10 mg DAILY PO 08/29/24 10:00 08/30/24 09:17 10 MG Digoxin 0.125 mg DAILY PO 08/29/24 10:00 08/30/24 09:16 0.125 MG Montelukast Sodium 10 mg DAILY PO 08/29/24 10:00 08/30/24 09:17 10 MG Sucralfate 1 gm QID PO 08/29/24 12:00 08/30/24 05:37 1 GM Folic Acid 1 mg DAILY PO 08/29/24 10:00 08/30/24 09:18 1 MG Levothyroxine Sodium 100 mcg QAM PO 08/29/24 07:00 08/30/24 05:37 100 MCG Pantoprazole Sodium 40 mg DAILY PO 08/29/24 10:00 08/30/24 09:16 40 MG Albuterol 2.5 mg Q6HPRN PRN NEB 08/29/24 07:15 Lactated Ringer's 1,000 ml @ 100 mls/hr Q10H IV 08/29/24 07:15 08/30/24 03:30 100 MLS/HR Sodium Chloride 10 ml Q8HR IV 08/29/24 14:00 08/30/24 05:39 10 ML Acetaminophen 650 mg Q6HP PRN PO 08/29/24 07:15 Oxycodone/ Acetaminophen 1 tab Q4HP PRN PO 08/29/24 07:15 Oxycodone HCl 10 mg Q12HR PO 08/29/24 10:00 08/30/24 09:17 10 MG Ondansetron HCl 4 mg Q6HP PRN IV 08/29/24 07:15 08/30/24 09:12 4 MG Docusate Sodium 100 mg Q12HR PO 08/29/24 10:00 08/30/24 09:17 100 MG Nitroglycerin 0.4 mg Q5MINP PRN SL 08/29/24 07:15 Morphine Sulfate 2 mg Q30M PRN IV 08/29/24 07:15 Levothyroxine Sodium 50 mcg QAM PO 08/29/24 07:00 08/30/24 05:38 50 MCG Oxycodone HCl 10 mg ONCE PRN PO 08/29/24 09:15 08/29/24 09:41 10 MG Cefepime HCl 50 ml @ 12.5 mls/hr DAILY IV 08/30/24 10:00 08/30/24 09:14 12.5 MLS/HR Enoxaparin Sodium 40 mg DAILY SC 08/30/24 10:00 08/30/24 09:16 40 MG Hydromorphone HCl 1 mg Q3HP PRN IV 08/29/24 13:00 Hydralazine HCl 10 mg Q6HP PRN IV 08/29/24 13:15 Examination: GENERAL:Normal, HEENT:Normal, NECK:Normal, LUNGS:Normal, CVS:Normal, ABDOMEN:Normal, MSK:Normal, SKIN:Normal, NEURO:Normal, :Normal laboratory and microbiology Laboratory Tests 08/30/24 05:37 Test 08/30/24 05:37 Range/Units Serum Glucose 148 H 74-106 mg/dL Problem List/Assessment/Plan Problem List/Assessment/Plan * Hypertension, for which the patient's blood pressure will be monitored. * Atrial fibrillation with secondary hypercoagulable state. The patient's Eliquis is on hold. * Hypothyroidism, status post thyroid surgery. The patient's TSH will be checked. * Obesity. * Questionable history of rheumatoid arthritis. * Status post right knee surgery for degenerative joint disease of the knee. She will be placed on pain medications and receive physical therapy. advance care planning- full code- time spent 18 mins Plan discussed with: Patient My Orders My Orders Orders - RACHEL BRAMBILA MD Procedure Category Date Status Time Hydromorphone PHA 08/29/24 In Process Injection (Dilaudid 13:00 Chest Portable XY 08/30/24 Resulted 06:00 Hydralazine Injection PHA 08/29/24 In Process (Apresoline Inject 13:15 Date of Service: Aug 30, 2024 Billing Provider: RACHEL BRAMBILA MD Common Visit Codes: [id number] INP/OBS CARE(HIGH) Secondary Visit Codes: [id number] CARE PLAN 30 MINUTES RACHEL BRAMBILA MD Aug 30, 2024 10:01
[2024-08-30] MEDS: OXYCODONE W/ ACETAMINOPHEN 5/325MG TABLET PO PRN (16:50)
[2024-08-31] VITALS (8 sets, daily range): BP systolic 139–148; BP diastolic 65–82; PULSE 51–65; RESP 16–20; TEMP 36.6; O2SAT 92–98
[2024-08-31 05:15] LABS: Urine Bacteria FEW /hpf (None Seen); Urine Blood Negative /uL (Negative); Urine Clarity Clear (Clear); Urine Color Light-Yellow (Yellow); Urine Mucus FEW (None Seen); Urine Protein, UAD Negative (Negative); Urine Specific Gravity 1.019 (1.001-1.035); Urine Squamous Epithelial Cell FEW /hpf (<5); Urine Urobilinogen Normal (Negative); Urine WBC 4 /HPF (0-5); Urine pH 5.5 (5.0-9.0)
[2024-08-31 06:57] LABS: Hemoglobin 10.5 g/dL (12.2-16.2)
--- NOTE | 2024-08-31 07:54 | DVHPN2 ---
Progress Note Date Seen: Aug 31, 2024 Medical Necessity Reason Pt with a Central, PICC or Fol: No Subjective Patient reports: No new complaints (Patient is doing well, hoping to be cleared to go home today) Objective vital signs Vital Sign Date Time Temp Pulse Resp B/P (MAP) Pulse Ox O2 Delivery O2 Flow Rate FiO2 08/31/24 07:05 97 Nasal Cannula* 2 28 08/31/24 05:00 98.0 62 20 148/73 (98) 98.0 Total Intake and Output 08/30/24 08/30/24 08/31/24 15:00 23:00 07:00 Intake Total 860 ml 800 ml Output Total 300 ml Balance 860 ml 500 ml medications Current Medications Medications Dose Ordered Sig/Rui Route Start Time Stop Time Status Last Admin Dose Admin Cyclobenzaprine HCl 10 mg DAILY PO 08/29/24 10:00 08/30/24 09:17 10 MG Digoxin 0.125 mg DAILY PO 08/29/24 10:00 08/30/24 09:16 0.125 MG Montelukast Sodium 10 mg DAILY PO 08/29/24 10:00 08/30/24 09:17 10 MG Sucralfate 1 gm QID PO 08/29/24 12:00 08/31/24 05:40 1 GM Folic Acid 1 mg DAILY PO 08/29/24 10:00 08/30/24 09:18 1 MG Levothyroxine Sodium 100 mcg QAM PO 08/29/24 07:00 08/31/24 06:03 100 MCG Pantoprazole Sodium 40 mg DAILY PO 08/29/24 10:00 08/30/24 09:16 40 MG Albuterol 2.5 mg Q6HPRN PRN NEB 08/29/24 07:15 Sodium Chloride 10 ml Q8HR IV 08/29/24 14:00 08/31/24 05:40 10 ML Acetaminophen 650 mg Q6HP PRN PO 08/29/24 07:15 Oxycodone/ Acetaminophen 1 tab Q4HP PRN PO 08/29/24 07:15 08/30/24 16:50 1 TAB Oxycodone HCl 10 mg Q12HR PO 08/29/24 10:00 08/30/24 23:01 10 MG Ondansetron HCl 4 mg Q6HP PRN IV 08/29/24 07:15 08/30/24 22:58 4 MG Docusate Sodium 100 mg Q12HR PO 08/29/24 10:00 08/30/24 21:51 100 MG Nitroglycerin 0.4 mg Q5MINP PRN SL 08/29/24 07:15 Morphine Sulfate 2 mg Q30M PRN IV 08/29/24 07:15 Levothyroxine Sodium 50 mcg QAM PO 08/29/24 07:00 08/31/24 06:03 50 MCG Oxycodone HCl 10 mg ONCE PRN PO 08/29/24 09:15 08/29/24 09:41 10 MG Cefepime HCl 50 ml @ 12.5 mls/hr DAILY IV 08/30/24 10:00 08/30/24 09:14 12.5 MLS/HR Enoxaparin Sodium 40 mg DAILY SC 08/30/24 10:00 08/30/24 09:16 40 MG Hydromorphone HCl 1 mg Q3HP PRN IV 08/29/24 13:00 Hydralazine HCl 10 mg Q6HP PRN IV 08/29/24 13:15 Examination: GENERAL:Normal, MSK:Abnormal laboratory and microbiology Laboratory Tests 08/31/24 05:46 08/30/24 05:37 Test 08/30/24 05:37 Range/Units Serum Glucose 148 H 74-106 mg/dL Problem List/Assessment/Plan Problem List/Assessment/Plan 69 year old female who is s/p Right TKA POD 2 1. Pain control 2. DVT ppx 3. CPM as ordered 4. Physical therapy 5. WBAT RLE with use of walker 6. has follow up on 09/14/2024 at 10:00, appointment reminder card at bedside with patient 7. patient to continue with [place] 10/325 as prescribed monthly from pain management and also to continue with eliquis as prescribed 8. clear for discharge from orthopedic standpoint with the following discharge recommendations: Total Knee Arthroplasty Discharge Instructions Wound Care 1. You will likely have a gel-type dressing over your wound, you may keep this on for 7-14 days after leaving the hospital until your first post-op visit, unless it becomes soiled or your skin becomes irritated. If a wound vac dressing is placed on your knee this is to be left in place for one week and will be changed as needed. After your remove the dressing or wound vac, the home health nurse may place clean dry dressing over your wound. Keep wound covered, clean and dry for two weeks. 2. Carolyn will be removed during your initial post-op visit. If you have concerns about our wound, please call the office immediately. If nervous about staple removal can take pain pill one hour prior to appointment. 3. If there is drainage from your wound, change the dressing daily until it stops. If drainage lasts more than 10 days, call our office. 4. Low grade (up to 100 degrees) fever is common for the first week after surgery. You should take your temperature daily. If you have fevers of 101 or more, please call the office. Medication Management 1. You will be discharged with pain medication, a blood thinner (unless you were previously on a blood thinner prior to surgery) and stool softener. Please follow the instructions regarding these medications as provided by your nurse at the hospital upon discharge. 2. Blood clots in the leg are a known complication of surgery. It is very important that you take the medication to protect against clots. Depending on what you are discharged on typically it is Lovenox 40mg daily for 2 weeks or Aspirin 81mg twice daily for 4 weeks. After you finish this, you should then take baby Aspirin (81mg) once daily for 2 weeks. 3. You should restart all of your prescription medications once discharged from the hospital/surgery center unless specifically instructed otherwise. 4. Herbal supplements may be restarted 2 weeks after surgery. 5. If you have been given Coumadin as a blood thinner, please follow up with your automotive sales representative during the first two weeks after surgery to review medications and overall medical well-being. 6. Please note that narcotic pain medication may cause constipation. Please remember to take stool softeners (Colace) when using narcotics to help reduce the change of constipation. You should not use alcohol together with narcotic medication. Activity 1. You can bear as much weight as you tolerate on your knee unless specifically instructed otherwise. You may use the walking aid which you were discharged with and switch to a cane whenever you feel comfortable doing so. You should use an assistive device until you can walk comfortably without it. Keep in mind that every patient moves at their own speed of recovery so take your time. 2. A physical therapist will visit you at home. 3. Use CPM machine as instructed (6 hours a day) and increase flexion by 5 degrees daily. 4. High impact activity such as jumping, aerobics, tennis, and skiing are not permitted during the first 3 months after surgery. These activities can contribute to accelerated wear and should be done with caution after this time. Discuss this with your surgeon if you have questions. 5. Although a bath or whirlpool is NOT permitted during the first 2-3 weeks, you may shower as soon as you get home from the hospital provided there is no wound drainage. Place a dressing or covering over the wound when you shower. 6. Swimming is not permitted until the wound is healed, which typically occurs approximately 3-4 weeks after surgery. [facility] [place] Instructions 1. Driving is not permitted within the first 2 weeks. 2. Your first postoperative visit will take place 2 weeks after discharge. Please call the office once you are home from the hospital to arrange this appointment. 3. Antibiotic preventative treatment is required before dental or other invasive procedures. Please ask your surgeon about this at your first postoperative visit. If you experience chest pain, shortness of breath or severe painful calf swelling, go to the nearest emergency room to be evaluated. Please call our office once your situation is stabilized. Plan discussed with: Patient Date of Service: Aug 31, 2024 Billing Provider: JOELLE SHAH MD Common Visit Codes: NOT BILLABLE MALAIKA GONZALEZ NP Aug 31, 2024 07:54
--- NOTE | 2024-08-31 10:28 | DVHDS2 ---
Discharge Summary Date of Admission Aug 29, 2024 at 07:02 Date of Discharge: Aug 31, 2024 Labs/Diagnostic Data: Laboratory Results Test 08/31/24 05:46 08/31/24 03:10 08/30/24 05:37 Hemoglobin 10.5 g/dL (12.2-16.2) Hematocrit 32.0 % (36.0-46.0) Urine Color Light-yellow (Yellow) Urine Clarity Clear (Clear) Urine pH 5.5 (5.0-9.0) Urine Specific [place] 1.019 (1.001-1.035) Urine Protein Negative (Negative) Urine Ketones Negative (Negative) Urine Blood Negative /uL (Negative) Urine Nitrite Negative (Negative) Urine Bilirubin Negative (Negative) Urine Urobilinogen Normal mg/dL (Negative) Urine Leukocyte Esterase Negative /uL (Negative) Urine RBC 1 /hpf (0 - 4) Urine Microscopic WBC 4 /HPF (0-5) Urine Squamous Epithelial Cells Few /hpf (<5) Urine Bacteria Few /hpf (None Seen) Urine Mucus Few (None Seen) Urine Glucose Normal mg/dL (Normal) White Blood Count 9.1 10^3/uL (4.4-10.8) Red Blood Count 3.62 10^6/uL (4.0-5.20) Mean Corpuscular Volume 92.0 fL (80.0-100.0) Mean Corpuscular Hemoglobin 31.0 pg (28.0-32.0) Mean Corpuscular Hemoglobin Concent 33.7 g/dL (32.0-36.0) Red Cell Distribution Width 13.8 % (11.8-14.3) Platelet Count 261 10^3/uL (140-450) Mean Platelet Volume 8.5 fL (6.9-10.8) Neutrophils (%) (Auto) 72.3 % (37.0-80.0) Lymphocytes (%) (Auto) 16.4 % (10.0-50.0) Monocytes (%) (Auto) 10.8 % (0.0-12.0) Eosinophils (%) (Auto) 0.2 % (0.0-7.0) Basophils (%) (Auto) 0.3 % (0.0-2.0) Neutrophils # (Auto) 6.6 10 ^3/uL (1.6-8.6) Lymphocytes # (Auto) 1.5 10 ^3/uL (0.4-5.4) Monocytes # (Auto) 1.0 10 ^3/uL (0-1.3) Eosinophils # (Auto) 0 10 ^3/uL (0-0.8) Basophils # (Auto) 0 10 ^3/uL (0-0.2) Nucleated Red Blood Cells 0.0 % Sodium Level 140 mmol/L (136-145) Potassium Level 4.5 mmol/L (3.5-5.1) Chloride Level 104 mmol/L (98-107) Carbon Dioxide Level 30 mmol/L (20-31) Anion Gap 6 (5-15) Blood Urea Nitrogen 21 mg/dL (9-23) Creatinine 1.12 mg/dL (0.550-1.02) Glomerular Filtration Rate Calc 54 mL/min (>90) BUN/Creatinine Ratio 18.8 (10.0-20.0) Serum Glucose 148 mg/dL (74-106) Calcium Level 9.1 mg/dL (8.7-10.4) Total Bilirubin 0.3 mg/dL (0.2-1.0) Aspartate Amino Transferase (AST) 16 U/L (13-40) Alanine Aminotransferase (ALT) 23 U/L (7-40) Alkaline Phosphatase 43 U/L (46-116) Total Protein 6.1 g/dL (5.7-8.2) Albumin 3.8 g/dL (3.2-4.8) Thyroid Stimulating Hormone (TSH) 0.56 uIU/mL (0.55-4.78) Digoxin Level 0.63 ng/mL (0.8-2) Other Laboratory Tests 08/31/24 05:46 08/30/24 05:37 Brief Hx & Hospital Course: see dictated note Condition at Discharge: Good Final Diagnosis/Problems List right knee surgery Discharge Disposition: Home Discharge Instruct/Medications Diet: Cardiac 2g Na,low cholest Activity: No Restrictions, As Tolerated Follow Up/Referral: fu with pcp/ortho Medications: resume home meds pulse ox on room air Discharge Statement: "Patient was advised to return to the ER or call 911 if any headaches, dizziness, shortness of breath, chest pain, abdominal pain, bleeding, fevers, or worsening of medical condition. Patient was counseled about treatment plan, medications, possible side effects, patientverbalized understanding. All questions were answered to the best of my ability. This discharge took greater then 30 minutes in planning, reviewing documentation, counseling the patient, and discussing with other team members." ASSESSMENT ASSESSMENT Assessment right knee surgery Date of Service: Aug 31, 2024 Billing Provider: RACHEL BRAMBILA MD Common Visit Codes: 51476-IXX/OBS DISCH DAY >30min RACHEL BRAMBILA MD Aug 31, 2024 10:28
--- NOTE | 2024-08-31 10:40 | DVHDS ---
DATE OF DISCHARGE: 08/31/2024 HISTORY OF PRESENT ILLNESS: The patient is a 69-year-old lady who was admitted after she underwent surgery for right knee degenerative joint disease. She has history of hypertension, hypothyroidism, atrial fibrillation and thyroid surgery. HOSPITAL COURSE: The patient has done well postoperatively. The patient's hemoglobin has been stable. The patient will be discharged home to resume her home medications as well as to follow up with her primary and Orthopedics. The patient will have home physical therapy as well as a CPM machine. The patient will follow up with her primary as well as Orthopedic. FINAL DIAGNOSES: * Atrial fibrillation with secondary hypercoagulable state. * Hypothyroidism. * Obesity. 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 * Status post knee surgery for degenerative joint disease of the knee. Time spent in discharge planning and review of plan with the patient and nursing was 38 minutes. MD CIPRIANO Mcknight/AZALEA TID: [id number] RECEIPT: [id number]
== END 2024-08-31 15:30 | disposition home or self-care (01) | DRG 469 ==
LOC: SUR 06:13 → OVERFLOW 07:02 → TELE-CENTR 14:50 → CENTRAL 08-31 00:57
PROVIDERS: ADMIT Internal Medicine; ATTEND Internal Medicine
PROC: 8E0YXBZ Computer Assisted Procedure of Lower Extremity (ICD-10-PCS; 2024-08-29)
PROC: 0SRC0J9 Replacement of Right Knee Joint with Synthetic Substitute, Cemented, Open Approach (ICD-10-PCS; principal; 2024-08-29 07:19)
DX: M17.11 Unilateral primary osteoarthritis, right knee (principal); J96.00 Acute respiratory failure, unspecified whether with hypoxia or hypercapnia; D68.69 Other thrombophilia; I48.91 Unspecified atrial fibrillation; I10 Essential (primary) hypertension; E03.9 Hypothyroidism, unspecified; E66.9 Obesity, unspecified; M21.061 Valgus deformity, not elsewhere classified, right knee; Z88.5 Allergy status to narcotic agent; Z88.2 Allergy status to sulfonamides; Z68.33 Body mass index [BMI] 33.0-33.9, adult; Z88.0 Allergy status to penicillin
CPT/HCPCS: 36415; 71045; 73562; 80053; 80162; 81001; 84443; 85014; 85018; 85025; 86850; 86900; 86901; 94640; 97110; 97116; 97163; 97530; G0378; J0131; J0171; J1100; J1885; J2405; J2704; J3490